=== PATIENT | female | born 1955 | race Caucasian/White ===

== ENCOUNTER → 2016-12-24 | Day surgery (SDC) | payer MEDICARE, OTHER ==
[2016-12-24 12:54] VITALS: RESP 16; TEMP 97.9; BMI 48.0
[2016-12-24 14:13] VITALS: BP 148/80; PULSE 71
--- NOTE | 2016-12-24 14:28 | USB ---
EXAMINATION TYPE: US biopsy breast VAD LT, MG diagnostic mammo LT wo CAD DATE OF EXAM: 12/24/2016 CLINICAL HISTORY: R92.8 Abn mammo. Abnormal ultrasound TECHNIQUE: Ultrasound guided core biopsy of left breast. COMPARISON: Left breast ultrasound and mammogram December 01, 2016 FINDINGS: The procedure of ultrasound guided fine-needle aspiration and/or core biopsy was explained to the patient. Benefits, alternatives, and risks were discussed. An informed consent was then obtained. The patient was placed in supine positioning for imaging and for the procedure. Preprocedure imaging redemonstrates elongated oval well-defined roughly 7 mm anechoic lesion with central round solid or hyperechoic 2 mm component at 11:00 position left breast. The overlying skin was prepped and draped in usual sterile fashion. Lidocaine is used as anesthetic into the skin. Lidocaine with epinephrine is used as anesthetic into the deeper tissue up to area of concern in the left breast. Under ultrasound guidance, a 12-gauge vacuum assisted biopsy gun device was used to obtain 3 core samples. Following this, a biopsy clip was left in lesion. The patient tolerated the procedure well without any immediate complication. The patient was kept in the radiology department for short stay after the procedure and then discharged home in stable condition. Postprocedure mammogram shows successful deployment of clip and air from recent biopsy. IMPRESSION: Successful, uncomplicated ultrasound guided core biopsy of area of concern in the left breast, full pathology results to follow. Low to intermediate index of suspicion noted at time of procedure. Samples had focus of dark material, I suspect old blood clot or hematoma. Patient states had bruising at this level in the recent past. Pathology Results: Benign BREAST, LEFT, CORE BIOPSY: FAT NECROSIS WITH SCAR, FIBROSIS, FOREIGN BODY GIANT CELL REACTION TO PIGMENTED NON-REFRACTILE MATERIAL, CHRONIC INFLAMMATION AND HEMOSIDERIN DEPOSITION. NEGATIVE FOR MALIGNANCY. SEE NOTE. Recommendation Follow up mammogram and ultrasound of the left breast in 6 months. CJ
== END ==
LOC: RADUSWWP 11:06
PROVIDERS: ATTEND Surgery
DX: N64.1 Fat necrosis of breast (principal); N61.0 Mastitis without abscess; L90.5 Scar conditions and fibrosis of skin; R92.8 Other abnormal and inconclusive findings on diagnostic imaging of breast; Z88.6 Allergy status to analgesic agent; Z88.1 Allergy status to other antibiotic agents
CPT/HCPCS: 88305; 88342; 88341; 19083; G0206; A4648; J2001

== ENCOUNTER → 2017-07-13 | Outpatient (CLI) | payer MEDICARE, OTHER ==
--- NOTE | 2017-07-13 10:49 | MM ---
Reason for exam: follow-up at short interval from prior study. Last mammogram was performed 7 months ago. History: Patient is postmenopausal, history of other cancer, and is nulliparous. Family history of breast cancer in maternal aunt at age 60. Benign US biopsy breast VAD LT of the left breast, December 24, 2016. Took estrogen for 1 month beginning at age 41. Took progesterone for 1 month beginning at age 41. Physical Findings: Nurse did not find any significant physical abnormalities on exam. MG 3D Diag Mammo W/Cad LT CC and MLO view(s) were taken of the left breast. Prior study comparison: December 24, 2016, left breast MG diagnostic mammo LT wo CAD. December 01, 2016, bilateral MG 3d diag mammo w/cad JUAN. There are scattered fibroglandular densities. No suspicious abnormality. Left biopsy marker noted. These results were verbally communicated with the patient and result sheet given to the patient on 07/13/17. ASSESSMENT: Negative, BI-RAD 1 RECOMMENDATION: Routine screening mammogram of both breasts in 6 months. Back on schedule for December 2017.
== END | disposition home or self-care (01) ==
LOC: RADMAMWWP 09:21
PROVIDERS: ATTEND Surgery
DX: R92.8 Other abnormal and inconclusive findings on diagnostic imaging of breast (principal)
CPT/HCPCS: 77065; G0279; 77061

== ENCOUNTER → 2020-04-04 | Outpatient (CLI) | payer MEDICARE, OTHER ==
--- NOTE | 2020-04-04 17:21 | CONS ---
CONSULTATION DATE OF SERVICE: 04/04/2020 This patient is a 64-year-old lady who has been evaluated in the sleep center for possible obstructive sleep apnea-hypopnea syndrome. HISTORY OF PRESENT ILLNESS/SLEEP-WAKE EVALUATION: The patient has been referred to Sleep Center because her oxygen level during sleep has been documented to drop. Her sleep schedule is from around 9 or 10 p.m. until 4:30 or 5 a.m. She denies significant problems with falling asleep. She has a TV set in the bedroom. She sleeps usually on the side position. She sleeps by herself; she is a ; so no clear information about her breathing or snoring, but she wakes up from sleep 2 times with episodes of nocturia. During the day, she may feel depressed. [place] Sleepiness Scale is 5. She may take one nap around 1 p.m. and usually feels refreshed after the nap. No history of vivid dreams during naps. No history of hypnagogic hallucinations. Positive history of restless leg symptoms. PAST MEDICAL HISTORY: Positive for hypertension, hyperlipidemia, arthritis, bronchitis, sinus problems. PAST SURGICAL HISTORY: Right fibula surgery for chondrosarcoma, cholecystectomy, total hysterectomy, appendectomy, bilateral knee replacement. Also status post nasal fracture. MEDICATIONS: Hydrocodone, gabapentin, ezetimibe Montelukast, Meloxicam 7.5 mg once a day, hydrochlorothiazide 50 mg twice a day, Albuterol, duloxetine, amitriptyline 10 mg at bedtime, trazodone 100 mg at bedtime, aspirin 81 mg once a day, diclofenac. SOCIAL HISTORY: Positive for smoking about half pack a day for 12 years. Alcohol consumption none. FAMILY HISTORY: Heart problems, stroke, fibromyalgia, diabetes, thyroid problems. REVIEW OF SYSTEMS: Awakenings from sleep. PHYSICAL EXAMINATION: GENERAL: A pleasant lady without distress. VITAL SIGNS: BP 156/81, HR 95, RR 15, height 5 feet 3 inches, weight 260, temperature 97.0, oxygen saturation at room air 91%. HEENT: PERRLA, EOMI. Evaluation of oropharynx showed tongue protrudes midline. Low position of soft palate. NECK: Supple. No JVD. Thyroid is not palpable. Wide neck; 18 inches in circumference. LUNGS: Clear to percussion and to auscultation. Good air exchange. No wheezing or rhonchi. HEART: S1, S2 regular. No murmurs, gallops or rubs. ABDOMEN: Obese. EXTREMITIES: No clubbing or cyanosis. DOUGHNUT FRYER: Awake, alert, and oriented X3. Cranial nerves 2 to 7 intact. There is no fasciculation or atrophy. noted. No focal deficits observed. IMPRESSION: 1. Awakenings from sleep with nocturia, small oropharyngeal air space, wide neck, history of documented oxygen desaturation during sleep; obstructive sleep apnea- hypopnea syndrome. 2. Obesity. 3. History of restless leg symptoms. 4. Hypertension. 5. Hyperlipidemia. 6. History of obstructive bronchitis. 7. Arthritis. 8. Status post right fibula chondrosarcoma surgical treatment. 9. Status post cholecystectomy. 10.History of sinus problems. 11.Status post appendectomy. 12.Status post total hysterectomy. 13.Status post bilateral knee replacement. 14.Status post nasal fracture. PLAN: 1. Polysomnography for evaluation of patient's breathing during sleep. 2. CPAP/BiPAP titration if sleep study confirms obstructive sleep apnea-hypopnea syndrome. 3. Preferable position during sleep on the side. 4. No driving if patient feels any sleepiness. 5. I will see patient for follow up visit to explain results of testing and following plan. Thank you very much for referring this patient for consultation. Sincerely, Altaf Larsen MD, PhD, FAASM Diplomat of [employer] [employer] [employer] [facility] MMODL / IJN: [id number] /
== END | disposition home or self-care (01) ==
LOC: SLEEP 14:35
PROVIDERS: ATTEND Internal Medicine
DX: G47.33 Obstructive sleep apnea (adult) (pediatric) (principal); R35.1 Nocturia; E66.9 Obesity, unspecified; G25.81 Restless legs syndrome; M19.90 Unspecified osteoarthritis, unspecified site; I10 Essential (primary) hypertension; F17.210 Nicotine dependence, cigarettes, uncomplicated; Z98.890 Other specified postprocedural states; Z90.49 Acquired absence of other specified parts of digestive tract; Z90.710 Acquired absence of both cervix and uterus; Z96.653 Presence of artificial knee joint, bilateral; Z87.81 Personal history of (healed) traumatic fracture
CPT/HCPCS: 99211